=== PATIENT | female | born 1980 | race Caucasian/White ===

== ENCOUNTER 2017-05-10 15:59 | Emergency (ER) | payer OTHER ==
[~2017-05-10] VITALS: Wt 104.3 kg
[~2017-05-10 15:59] MED LIST: AMOXICILLIN500 MG PO; AMOXIL500 MG PO; AUGMENTIN 875875 MG PO; Amphetamine Sal20 MG PO; BACTRIM DS 8001 TA1 PO; CIPROFLOXACIN500 MG PO; DEXTROAMPH SACC30 MG PO; ESTRADIOL1 MG PO; ESTROGENS0.3 MG PO; FLOMAX0.4 MG PO; IBU800 MG PO; LISINOPRIL20 MG PO; MACROBID100 M1 PO; MEDROL DOSEPAK4 MG PO; MOTRIN800 MG PO; Motrin,Rufen800 MG PO; NORCO 5-325 TA1 EACH PO; OMEPRAZOLE20 M2 PO; PEN-VEE K500 MG PO; PREDNICOT20 MG PO; SERTRALINE HYDR50 MG PO; TESSALON PERLE200 MG PO; ULTRAM50 MG PO; VICODIN 5/500 505 MG PO; ZITHROMAX Z PA250 MG PO; ZOFRAN ODT4 MG SL
[2017-05-10 16:21] VITALS: BP 167/102
[2017-05-10] MEDS ORDERED: REGLAN5 MG PO (16:48)
[2017-05-10] MEDS ORDERED: NAPROSYN500 MG PO (16:56)
[2017-05-10] MEDS ORDERED: AMOXICILLIN500 M2 PO (16:56)
== END 2017-05-10 18:39 | disposition home or self-care (01) ==
LOC: ED 15:59
DX: K08.89 Other specified disorders of teeth and supporting structures (principal); F17.200 Nicotine dependence, unspecified, uncomplicated; F12.10 Cannabis abuse, uncomplicated; F11.10 Opioid abuse, uncomplicated; Z90.710 Acquired absence of both cervix and uterus; Z98.890 Other specified postprocedural states; Z98.51 Tubal ligation status; Z79.899 Other long term (current) drug therapy

== ENCOUNTER 2017-11-20 07:54 | Emergency (ER) | payer OTHER ==
[~2017-11-20] VITALS: Ht 157.4 cm; Wt 106.6 kg
[~2017-11-20 07:54] MED LIST changes: +AMOXICILLIN500 M2 PO; +NAPROSYN500 MG PO; +REGLAN5 MG PO
[2017-11-20 08:23] LABS: BILIRUBIN NEGATIVE (NEGATIVE); BLOOD 3+ (NEGATIVE); CLARITY CLOUDY (CLEAR); COLOR YELLOW (YELLOW); GLUCOSE NEGATIVE (NEGATIVE); KETONE NEGATIVE (NEGATIVE); LEUKO ESTERASE NEGATIVE (NEGATIVE); NITRITE NEGATIVE (NEGATIVE); PH 5.5 (5.0-9.0); SPECIFIC GRAVITY >= 1.030 (1.005-1.030); UROBILINOGEN 0.2 E.U./dl (0.2-1.0)
[2017-11-20 08:32] LABS: RBC TNTC rbc/hpf (0-2)
[2017-11-20 09:14] LABS: HEMATOCRIT 40.3 % (37.0-47.0); HEMOGLOBIN 12.7 g/dl (12.0-16.0); MEAN CELL VOLUME 91.6 fl (81.0-99.0); MEAN CORPUSCULAR HGB 28.9 pg (27.0-31.0); MEAN CORPUSCULAR HGB CONC 31.5 g/dl (33.0-37.0); MEAN PLATELET VOLUME 10.9 fl (9.6-12.3); PLATELET COUNT AUTOMATED 207 10*3/uL (130-400); RED CELL DISTRI WIDTH 13.2 % (0-14.5); WHITE BLOOD COUNT 9.8 10*3/uL (4.8-10.8)
[2017-11-20 09:28] LABS: ALBUMIN 3.5 gm/dl (3.1-4.5); ALKALINE PHOSPHATASE 65 U/L (45-117); BUN 15 mg/dl (7-24); CHLORIDE 107 mmol/L (98-107); CREATININE 0.84 mg/dL (0.55-1.02); LIPASE 205 U/L (73-393); POTASSIUM 3.8 mmol/L (3.5-5.1); SGOT/AST 20 IU/L (3-35); SGPT/ALT 28 U/L (12-78); SODIUM 141 mmol/L (136-145); TOTAL PROTEIN 7.7 gm/dL (6.4-8.2)
[2017-11-20 09:34] VITALS: BP 163/85
[2017-11-20 09:34] LABS: BASOPHILS 1 % (0-1); PLATELET SUFFICIENCY NORMAL (NORMAL); TOTAL CELLS COUNTED 100 #CELLS
[2017-11-20] MEDS ORDERED: NORCO 5-325 TA1 EACH PO (11:02)
== END 2017-11-20 11:12 | disposition home or self-care (01) ==
LOC: ED 07:54
PROVIDERS: Emergency Medicine
DX: N20.0 Calculus of kidney (principal); F12.10 Cannabis abuse, uncomplicated; F17.200 Nicotine dependence, unspecified, uncomplicated; F11.10 Opioid abuse, uncomplicated; E78.5 Hyperlipidemia, unspecified; I10 Essential (primary) hypertension; E66.9 Obesity, unspecified; Z90.710 Acquired absence of both cervix and uterus; Z98.890 Other specified postprocedural states; Z98.51 Tubal ligation status; Z68.39 Body mass index [BMI] 39.0-39.9, adult; Z79.899 Other long term (current) drug therapy

== ENCOUNTER → 2018-03-06 | Outpatient (CLI) | payer OTHER | LOC: US 14:00 | DX: D17.20 Benign lipomatous neoplasm of skin and subcutaneous tissue of unspecified limb (principal); M79.89 Other specified soft tissue disorders ==

== ENCOUNTER → 2018-03-20 | Outpatient (CLI) | payer OTHER | END | disposition home or self-care (01) | LOC: MAMMO 02:47 | DX: Z12.31 Encounter for screening mammogram for malignant neoplasm of breast (principal); D17.20 Benign lipomatous neoplasm of skin and subcutaneous tissue of unspecified limb ==

== ENCOUNTER → 2018-03-27 | Outpatient (CLI) | payer OTHER | END | disposition home or self-care (01) | LOC: MAMMO 12:40 | DX: N64.9 Disorder of breast, unspecified (principal) ==

== ENCOUNTER 2018-11-20 21:12 | Emergency (ER) | payer OTHER ==
[~2018-11-20] VITALS: Ht 157.4 cm; Wt 90.7 kg
--- NOTE | ~2018-11-20 | EKG ---
[place], [place] ELECTROCARDIOGRAM REPORT NAME: MICHEL ROTHMAN UNIT #: [id number] ROOM: DOCTOR: JILLIAN DRAFT REPORT BIRTHDATE: [birth year] [facility] Test Date: 2018-11-20 Test Time: 21:32:41 Pat Name: MICHEL ROTHMAN Department: ER Room: 17 Gender: F Canvas Cutter: Selma Zambrano : 1980 Requested By: MACARIO SUTHERLAND Order Number: [id number] Reading MD: Kelly Goncalves MD Measurements Intervals Thayer Rate: 91 P: 18 VT: 124 QRS: 18 QRSD: 85 T: 13 QT: 380 QTc: 468 Interpretive Statements Sinus rhythm Normal ECG Electronically Signed On 11-23-2018 13:21:55 PDT by Kelly Goncalves MD CM:EKGRPT:ELECTROCARDIOGRAM REPORT 1321 MACARIO CARTER DRAFT REPORT MACARIO SUTHERLAND DO
[2018-11-20 21:33] LABS: BASO # 0.1 10*3/uL (0.0-0.1); BASO % 1.3 % (0.0-1.0); EOS # 0.1 10*3/uL (0.0-0.4); EOS % 2.5 % (1.0-4.0); HEMATOCRIT 38.7 % (37.0-47.0); HEMOGLOBIN 12.9 g/dl (12.0-16.0); LYMPH # 2.4 10*3/uL (1.3-4.4); LYMPH % 43.7 % (27.0-41.0); MEAN CORPUSCULAR HGB CONC 33.3 g/dl (33.0-37.0); MEAN PLATELET VOLUME 10.5 fl (9.6-12.3); MONO # 0.5 10*3/uL (0.1-1.0); MONO % 9.8 % (3.0-9.0); NEUT # 2.3 10*3/uL (2.3-7.9); NEUT % 42.5 % (47.0-73.0); PLATELET COUNT AUTOMATED 384 10*3/uL (130-400); RED BLOOD COUNT 4.16 10*6/uL (4.10-5.10); RED CELL DISTRI WIDTH 13.8 % (0-14.5); WHITE BLOOD COUNT 5.5 10*3/uL (4.8-10.8)
[2018-11-20 21:48] VITALS: BP 125/72
[2018-11-20 22:05] LABS: ACT PARTIAL THROMBO TIME 25.3 SECONDS (20.8-31.5); INTERNATIONAL NORM RATIO 0.9 (2.0-3.5)
[2018-11-20 22:26] LABS: ALBUMIN 3.4 gm/dl (3.1-4.5); ALKALINE PHOSPHATASE 71 U/L (45-117); BUN 14 mg/dl (7-24); CHLORIDE 107 mmol/L (98-107); CREATININE 0.64 mg/dL (0.55-1.02); POTASSIUM 3.4 mmol/L (3.5-5.1); SGOT/AST 22 IU/L (3-35); SGPT/ALT 44 U/L (12-78); SODIUM 142 mmol/L (136-145); TOTAL PROTEIN 7.7 gm/dL (6.4-8.2)
[2018-11-20 22:30] LABS: TROPONIN I < 0.015 ng/ml (<0.045)
== END 2018-11-20 22:58 | disposition home or self-care (01) ==
LOC: ED 21:12
PROVIDERS: Student in an Organized Health Care Education/Training Program
DX: R07.89 Other chest pain (principal); R42 Dizziness and giddiness; R06.02 Shortness of breath; J02.9 Acute pharyngitis, unspecified; E78.5 Hyperlipidemia, unspecified; I10 Essential (primary) hypertension; F17.200 Nicotine dependence, unspecified, uncomplicated; F14.10 Cocaine abuse, uncomplicated; F11.10 Opioid abuse, uncomplicated; E66.9 Obesity, unspecified; Z68.39 Body mass index [BMI] 39.0-39.9, adult; Z79.899 Other long term (current) drug therapy

== ENCOUNTER 2019-09-05 12:16 | Emergency (ER) | payer OTHER ==
[~2019-09-05] VITALS: Ht 157.4 cm; Wt 102.1 kg
[2019-09-05 12:25] VITALS: BP 132/79
[2019-09-05] MEDS ORDERED: TYLENOL325 M1 PO (14:41)
[2019-09-05] MEDS ORDERED: NAPROSYN500 MG PO (14:41)
[2019-09-05] MEDS ORDERED: AUGMENTIN 875875 MG PO (14:41)
== END 2019-09-05 14:45 | disposition home or self-care (01) ==
LOC: ED 12:16
DX: L60.0 Ingrowing nail (principal); I10 Essential (primary) hypertension; E78.5 Hyperlipidemia, unspecified; E66.9 Obesity, unspecified; G43.909 Migraine, unspecified, not intractable, without status migrainosus; F17.200 Nicotine dependence, unspecified, uncomplicated; Z68.30 Body mass index [BMI] 30.0-30.9, adult; Z87.442 Personal history of urinary calculi; Z79.2 Long term (current) use of antibiotics; Z79.899 Other long term (current) drug therapy

== ENCOUNTER → 2020-09-11 | Outpatient (CLI) | payer OTHER ==
[~2020-09-11] MED LIST changes: +TYLENOL325 M1 PO
== END | disposition home or self-care (01) ==
LOC: COVID19 14:21
PROVIDERS: ATTEND Hospitalist
DX: Z20.822 Contact with and (suspected) exposure to COVID-19 (principal)

== ENCOUNTER 2020-11-28 11:14 | Emergency (ER) | payer OTHER ==
[~2020-11-28] VITALS: Ht 157.4 cm; Wt 99.8 kg
[2020-11-28 12:07] LABS: BILIRUBIN Negative (Negative); BLOOD 3+ (Negative); CLARITY Turbid (Clear); COLOR Yellow (Yellow); GLUCOSE Negative (Negative); KETONE Trace (Negative); LEUKO ESTERASE 3+ (Negative); NITRITE Positive (Negative); PH 5.5 (4.5-8.0)
[2020-11-28 12:22] LABS: BACTERIA 4+; EPITHELIAL CELLS 21-30; RBC 41-50 rbc/hpf (0-2); WBC TNTC wbc/hpf (0-5)
[2020-11-28 12:23] LABS: BASO # 0.1 10*3/uL (0.0-0.1); BASO % 0.3 % (0.0-1.0); EOS # 0.1 10*3/uL (0.0-0.4); EOS % 0.3 % (1.0-4.0); HEMATOCRIT 41.3 % (37.0-47.0); LYMPH % 9.9 % (27.0-41.0); MEAN CELL VOLUME 95.4 fl (81.0-99.0); MEAN CORPUSCULAR HGB 29.6 pg (27.0-31.0); MEAN PLATELET VOLUME 9.4 fl (9.6-12.3); MONO # 0.9 10*3/uL (0.1-1.0); MONO % 4.6 % (3.0-9.0); NEUT # 16.7 10*3/uL (2.3-7.9); NEUT % 84.3 % (47.0-73.0); PLATELET COUNT AUTOMATED 393 10*3/uL (130-400); RED BLOOD COUNT 4.33 10*6/uL (4.10-5.10); RED CELL DISTRI WIDTH 13.2 % (0-14.5); WHITE BLOOD COUNT 19.8 10*3/uL (4.8-10.8)
[2020-11-28 12:39] LABS: ALBUMIN 3.6 gm/dl (3.1-4.5); ALKALINE PHOSPHATASE 82 U/L (45-117); BUN 15 mg/dl (7-24); CHLORIDE 103 mmol/L (98-107); LIPASE 146 U/L (73-393); POTASSIUM 3.6 mmol/L (3.5-5.1); SGOT/AST 20 IU/L (3-35); SGPT/ALT 31 U/L (12-78); SODIUM 134 mmol/L (136-145); TOTAL PROTEIN 8.3 gm/dL (6.4-8.2)
[2020-11-28 17:00] VITALS: BP 150/90
== END 2020-11-28 17:00 | disposition short-term general hospital (02) ==
LOC: ED 11:14
PROVIDERS: Emergency Medicine
DX: A41.9 Sepsis, unspecified organism (principal); N13.2 Hydronephrosis with renal and ureteral calculous obstruction; F32.9 Major depressive disorder, single episode, unspecified; I10 Essential (primary) hypertension; Z79.899 Other long term (current) drug therapy; E78.5 Hyperlipidemia, unspecified; Z90.710 Acquired absence of both cervix and uterus; Z98.890 Other specified postprocedural states